=== PATIENT | female | born 1995 | race Caucasian/White ===

== ENCOUNTER 2018-03-06 19:46 | Emergency (ER) | payer MEDICAID, OTHER ==
[2018-03-06] MEDS: ONDANSETRON (ODT) 4 MG TAB ODT (23:14)
[2018-03-06] MEDS: HYDROCODONE/APAP (5/325) TAB PO (23:14)
== END 2018-03-07 01:57 | disposition home or self-care (01) ==
LOC: FTE 03-07 01:57
DX: S09.90XA Unspecified injury of head, initial encounter (principal); S53.402A Unspecified sprain of left elbow, initial encounter; R51 Headache; V49.40XA Driver injured in collision with unspecified motor vehicles in traffic accident, initial encounter
CPT/HCPCS: 70450; 72040; 72100; 73080-LT; 81025; 99284-25